=== PATIENT | male | born 1940 | race Hispanic/Latino ===

== ENCOUNTER 2020-12-10 08:56 | Day surgery (SDC) | payer MEDICARE ==
[2020-12-04 13:32] LABS: BASOPHILS % (AUTO) 0.7 % (0.0-5.0); HEMATOCRIT 40.2 % (42-54); LYMPHOCYTES % (AUTO) 28.8 % (21.0-51.0); MEAN CORPUSCULAR HGB CONC 31.6 g/dL (32.0-36.0); MONOCYTES % (AUTO) 6.7 % (3.0-13.0); NEUTROPHILS % (AUTO) 61.5 % (40.0-77.0); PLATELET COUNT (AUTO) 279 K/uL (130-400); RED BLOOD CELL COUNT(AUTO) 4.23 MIL/uL (4.50-6.20); RED CELL DISTRIBUTION WIDTH 13.8 % (11.0-15.5); WHITE BLOOD COUNT (AUTO) 7.1 K/uL (4.8-10.8)
[2020-12-04 13:34] LABS: APPEARANCE,URINE Clear (CLEAR); BILIRUBIN,URINE Negative (NEGATIVE); COLOR,URINE Yellow (YELLOW); GLUCOSE, URINE (UA) Negative (NEGATIVE); KETONES,URINE Negative (NEGATIVE); LEUKOCYTE ESTERASE ,URINE Moderate (NEGATIVE); NITRATE,URINE Negative (NEGATIVE); OCCULT BLOOD,URINE Moderate (NEGATIVE); PH,URINE 5.5 (5.0-8.0); PROTEIN,URINE Trace mg/dL (NEGATIVE); UROBILINOGEN,URINE 0.2 mg/dL (0.2-1.0)
[2020-12-04 13:44] LABS: INR 1.02 (0.85-1.15); PROTHROMBIN TIME 11.1 SEC (9.6-11.6)
[2020-12-04 13:45] LABS: CREATININE 0.8 mg/dL (0.5-1.5); POTASSIUM 4.5 mmol/L (3.5-5.1)
[2020-12-04 13:46] LABS: PARTIAL THROMBOPLASTIN TIME 29.9 SEC (26.3-35.5)
[2020-12-04 13:48] LABS: BACTERIA,URINE Moderate /HPF (None Seen); SQUAMOUS EPITHELIAL CELL,UR None Seen /HPF (0-2)
[2020-12-09 11:24] VITALS: BP 159/77
[~2020-12-10] VITALS: Ht 177.8 cm; Wt 88.7 kg
[2020-12-10] VITALS (16 sets, daily range): BP systolic 124–162; BP diastolic 65–91
[~2020-12-10 08:56] MED LIST: CEFTRIAXONE 1G VIAL IVP SCH; GENTAMICIN SULFATE 0 MG in 0.9%NACL 100ML 100 ML IV SCH; LEVO500T89 PO; LOSA1TAB54 PO
[2020-12-10] MEDS ORDERED: LACTATED RINGERS 1000ML 1,000 ML IV ONE (09:15)
[2020-12-10] MEDS ORDERED: ZOSYN 3.375GM+NS 50ML 50 ML ONE (09:41)
[2020-12-10] MEDS ORDERED: NEOSTIGMINE 5MG/5ML SYR IV ONE (10:42)
[2020-12-10] MEDS ORDERED: SUCCINYLCHOLINE 200MG/10ML SYR ONE (10:42)
[2020-12-10] MEDS ORDERED: GLYCOPYRROLATE 1 MG/5 ML SYRINGE ONE (10:42)
[2020-12-10] MEDS ORDERED: ONDANSETRON 4MG INJ ONE (10:42)
[2020-12-10] MEDS ORDERED: LIDOCAINE PF 100MG/5ML (2%) SYRINGE 5ML ONE (10:42)
[2020-12-10] MEDS ORDERED: MIDAZOLAM HCL 1 MG/ML 2ML VIAL ONE (10:42)
[2020-12-10] MEDS ORDERED: DEXAMETHASONE SOD PHOSPHATE 10MG/ML 1ML VIAL ONE (10:42)
[2020-12-10] MEDS ORDERED: PROPOFOL 10 MG/ML 20ML VIAL IV ONE (10:42)
[2020-12-10] MEDS ORDERED: ROCURONIUM 10MG/1ML SYR 10 MG/ML ML ONE (10:42)
[2020-12-10] MEDS ORDERED: FENTANYL CITRATE PF 50 MCG/1 ML 2ML VIAL ONE ×2 (10:43→12:45)
[2020-12-10 14:49] LABS: CREATININE 0.9 mg/dL (0.5-1.5); POTASSIUM 4.4 mmol/L (3.5-5.1)
== END 2020-12-10 16:05 | disposition home or self-care (01) ==
LOC: DAH 08:56
PROVIDERS: ATTEND Urology
DX: N40.1 Benign prostatic hyperplasia with lower urinary tract symptoms (principal); Z20.822 Contact with and (suspected) exposure to COVID-19; R33.8 Other retention of urine; N32.89 Other specified disorders of bladder; R35.1 Nocturia; I10 Essential (primary) hypertension; N45.1 Epididymitis; Z79.01 Long term (current) use of anticoagulants
CPT/HCPCS: 36415 ×2; 52648; 71045; 80048 ×2; 81001; 85025; 85610; 85730; 87077; 87088; 87186; 87635; 93005; A4215; A4221; A4222; A4223; A4335; A4354; A4358 ×2; A4930; A6260; A6402; C9803; J0330; J0696; J1100; J1580; J2001; J2250; J2405; J2543; J2704; J2710; J3010 ×2; J3490; J7030; J7120